=== PATIENT | male | born 1975 | race Caucasian/White ===

== ENCOUNTER → 2018-08-04 | Outpatient (REF) | payer BC | LOC: M LAB LCGH 10:18 | PROVIDERS: ATTEND Nurse Practitioner Family | DX: C44.622 Squamous cell carcinoma of skin of right upper limb, including shoulder (principal) ==

== ENCOUNTER → 2022-05-09 | Outpatient (REF) | payer BC | LOC: M LAB REF 16:23 | PROVIDERS: ATTEND Surgery | DX: C44.622 Squamous cell carcinoma of skin of right upper limb, including shoulder (principal) ==